=== PATIENT | male | born 1970 | race Caucasian/White ===

== ENCOUNTER 2021-09-06 00:02 | Observation (INO) | payer OTHER, SELFPAY ==
[2021-09-06 00:36] LABS: #Basophils 0.1 10x3/uL (0.0-0.2); #Eosinphils 0.5 10x3/uL (0.0-0.5); #Monocytes 0.8 10x3/uL (0.0-1.1); #Neutrophils 8.7 10x3/uL (1.5-8.4); %Basophils 0.7 % (0.0-2.0); %Eosinophils 3.8 % (0.0-6.0); %Lymphocytes 19.1 % (18.0-47.0); %Monocytes 6.1 % (0.0-10.0); %Neutrophils 69.9 % (40.0-75.0); Mean Corpuscular HGB CONC 35.8 g/dL (32.0-36.0); Mean Corpuscular Hemoglobin 30.9 pg (27.0-33.0); Mean Corpuscular Volume 86.3 fl (81.2-95.1); Platelet Count 310 10x3/uL (150-450); RBC Distribution Width 11.9 % (11.5-14.5); Red Blood Cell (RBC) Count 5.18 10x6/uL (4.32-5.72); White Blood Cell (WBC) Count 12.4 10x3/uL (3.5-10.5)
[2021-09-06 00:52] LABS: ALT (SGPT) 15 U/L (8-55); AST (SGOT) 12 U/L (5-34); Alkaline Phosphatase 70 U/L (40-110); Anion Gap 24 mmol/L (10-20); BUN (Urea Nitrogen) 22 mg/dL (8.4-25.7); Bilirubin, Total 1.2 mg/dL (0.2-1.2); Calc. Creatinine Clearance 0 mL/min (70-130); Carbon Dioxide 21 mmol/L (22-29); Chloride 99 mmol/L (98-107); Estimated GFR 79; Globulin 3.4 g/dL (2.4-3.5); Glucose 198 mg/dL (70-105); Magnesium 1.7 mg/dL (1.6-2.6); Potassium 4.2 mmol/L (3.5-5.1); Protein, Total 7.4 g/dL (6.0-8.3); Sodium 140 mmol/L (136-145)
[2021-09-06] MEDS ORDERED: Calcium Carbonate 500 MG ChewTAB PO PRN (01:35)
[2021-09-06] MEDS ORDERED: Acetaminophen 325 MG TAB PO PRN (01:35)
[2021-09-06] MEDS ORDERED: Dextrose 5% in Water 1,000 ML IV PRN (01:35)
[2021-09-06] MEDS ORDERED: Guaifenesin DM 100-10/5 ML UDCUP PO PRN (01:35)
[2021-09-06] MEDS ORDERED: Ondansetron PF 4 MG/2 ML Vial IVP PRN (01:35)
[2021-09-06] MEDS ORDERED: Senokot S 8.6-50 MG TAB PO PRN (01:35)
[2021-09-06] MEDS ORDERED: Dextrose 50% Abboject 50 ML SYRINGE SLOW IVP PRN (01:35)
[2021-09-06] MEDS ORDERED: Lactated Ringer's 1,000 ML IV SCH ×2 (01:45)
[2021-09-06 02:30] VITALS: BMI 25.6
[2021-09-06] MEDS ORDERED: Magnesium 2 GM/50 ML(in water) 2 GM in Premix Bag 1 BAG IVPB SCH (02:45)
[2021-09-06 04:31] LABS: Bilirubin Neg (Negative); Blood, Urine Negative (Negative); Clarity Clear (Clear); Glucose, Urine (Dipstick) >=1000 mg/dL (Negative); Ketone, Urine Negative (Negative); Leukocyte Negative (Negative); Nitrite Negative (Negative); Protein, Urine (Dipstick) Negative (Neg-Trace); Urobilinogen Normal mg/dL (Less than 2)
[2021-09-06 04:37] LABS: Bacteria/HPF None Seen HPF (None Seen); RBC/HPF None Seen HPF (0-3); Squamous Epithelial None Seen HPF (0-3); WBC/HPF None Seen HPF (0-3)
[2021-09-06 05:17] LABS: SARS-CoV-2 NAA Rapid Test Not Detected (NotDetected)
[2021-09-06 05:20] LABS: Anion Gap 17 mmol/L (10-20); BUN (Urea Nitrogen) 19 mg/dL (8.4-25.7); CK (CPK) 36 U/L (30-200); Calc. Creatinine Clearance 144 mL/min (70-130); Calcium 9.3 mg/dL (7.8-10.44); Carbon Dioxide 24 mmol/L (22-29); Chloride 104 mmol/L (98-107); Estimated GFR 107; Glucose 102 mg/dL (70-105); Magnesium 2.1 mg/dL (1.6-2.6); Phosphorus 3.7 mg/dL (2.3-4.7); Potassium 3.7 mmol/L (3.5-5.1); Sodium 141 mmol/L (136-145)
[2021-09-06 05:20] LABS: #Basophils 0.1 10x3/uL (0.0-0.2); #Eosinphils 0.4 10x3/uL (0.0-0.5); #Monocytes 0.7 10x3/uL (0.0-1.1); #Neutrophils 5.2 10x3/uL (1.5-8.4); %Basophils 0.5 % (0.0-2.0); %Eosinophils 4.2 % (0.0-6.0); %Lymphocytes 32.9 % (18.0-47.0); %Monocytes 7.1 % (0.0-10.0); Hemoglobin 14.3 g/dL (13.5-17.5); Mean Corpuscular HGB CONC 36.8 g/dL (32.0-36.0); Mean Corpuscular Volume 84.2 fl (81.2-95.1); Mean Platelet Volume 9.8 fl (7.4-10.4); Platelet Count 283 10x3/uL (150-450); Red Blood Cell (RBC) Count 4.62 10x6/uL (4.32-5.72); White Blood Cell (WBC) Count 9.5 10x3/uL (3.5-10.5)
[2021-09-06 05:22] LABS: Free T4 (Free Thyroxine) 0.97 ng/dL (0.70-1.48); Thyroid Stimulating Hormone 1.473 uIU/mL (0.35-4.94)
[2021-09-06] MEDS ORDERED: Hydrocortisone Sod Succ/PF 100 mg/2 ml Vial IVP SCH (06:00)
[2021-09-06] MEDS ORDERED: Sodium Chloride 0.9% 1,000 ML IV SCH (06:00)
[2021-09-06] MEDS ORDERED: Potassium Chloride 20 MEQ TAB PO SCH (06:30)
[2021-09-06 08:01] LABS: Troponin I Less than 0.010 ng/mL (< 0.028)
[2021-09-06] MEDS: Enoxaparin Sodium 40 MG/0.4 ML SYRINGE SC SCH (08:41)
[2021-09-06] MEDS ORDERED: Gabapentin 100 MG CAP PO SCH (09:00)
[2021-09-06] MEDS: HumaLOG 300 UNITS/3 ML VIAL SC PRN ×2 (11:57→16:22)
[2021-09-06] MEDS: Hydrocortisone Sod Succ/PF 100 mg/2 ml Vial IVP SCH ×2 (11:57→16:22)
[2021-09-06 12:42] LABS: Hemoglobin A1c 11.9 % (4.0-6.0)
[2021-09-06] MEDS ORDERED: [UNRECOGNIZED DRUG - OTHER] SC SCH (18:37)
[2021-09-06] MEDS ORDERED: INSULIN ASPART PROT SC SCH (18:37)
[2021-09-06] MEDS ORDERED: INSULN ASP SC SCH (18:37)
[2021-09-06] MEDS ORDERED: HumaLOG 300 UNITS/3 ML VIAL SC PRN (18:45)
[2021-09-06] MEDS ORDERED: Lantus 1000 UNITS/10 ML VIAL SC SCH (20:00)
[2021-09-06] MEDS: Gabapentin 300 MG CAP PO SCH (20:24)
[2021-09-06] MEDS: HumuLIN 70/30 (300 UNITS/3 ML VIAL) SC SCH (20:24)
[2021-09-06] MEDS ORDERED: Atorvastatin Calcium 20 MG TAB PO SCH (21:00)
[2021-09-06] MEDS ORDERED: [UNRECOGNIZED DRUG - OTHER] PO SCH (21:00)
[2021-09-06] MEDS ORDERED: EMPAGLIFLOZIN PO SCH (21:00)
[2021-09-06] MEDS ORDERED: METFORMIN HCL PO SCH (21:00)
[2021-09-07] MEDS: Hydrocortisone Sod Succ/PF 100 mg/2 ml Vial IVP SCH ×2 (00:47→06:13)
[2021-09-07 05:45] LABS: Anion Gap 14 mmol/L (10-20); BUN (Urea Nitrogen) 17 mg/dL (8.4-25.7); Calc. Creatinine Clearance 158 mL/min (70-130); Calcium 9.2 mg/dL (7.8-10.44); Carbon Dioxide 25 mmol/L (22-29); Chloride 105 mmol/L (98-107); Estimated GFR 110; Glucose 110 mg/dL (70-105); Potassium 3.3 mmol/L (3.5-5.1); Sodium 141 mmol/L (136-145)
[2021-09-07] MEDS: Enoxaparin Sodium 40 MG/0.4 ML SYRINGE SC SCH (08:21)
[2021-09-07] MEDS: Atorvastatin Calcium 40 MG TAB PO SCH (08:22)
[2021-09-07] MEDS: Gabapentin 300 MG CAP PO SCH ×3 (08:22→21:55)
[2021-09-07] MEDS: HumuLIN 70/30 (300 UNITS/3 ML VIAL) SC SCH ×2 (08:22→21:55)
[2021-09-07] MEDS: glipiZIDE 10 MG TAB PO SCH (08:22)
[2021-09-07] MEDS ORDERED: Iopamidol 370 76% 100 ML VIAL ONE (15:03)
[2021-09-08 04:49] LABS: Anion Gap 14 mmol/L (10-20); BUN (Urea Nitrogen) 17 mg/dL (8.4-25.7); Calc. Creatinine Clearance 156 mL/min (70-130); Carbon Dioxide 26 mmol/L (22-29); Chloride 105 mmol/L (98-107); Estimated GFR 109; Glucose 115 mg/dL (70-105); Potassium 3.2 mmol/L (3.5-5.1); Sodium 142 mmol/L (136-145)
[2021-09-08 07:07] VITALS: BP 115/70; TEMP 97.8
[2021-09-08] MEDS: Gabapentin 300 MG CAP PO SCH (08:10)
[2021-09-08] MEDS: HumuLIN 70/30 (300 UNITS/3 ML VIAL) SC SCH (08:10)
[2021-09-08] MEDS: Atorvastatin Calcium 40 MG TAB PO SCH (08:10)
[2021-09-08] MEDS: glipiZIDE 10 MG TAB PO SCH (08:10)
[2021-09-08] MEDS: Enoxaparin Sodium 40 MG/0.4 ML SYRINGE SC SCH (08:10)
[2021-09-08] MEDS ORDERED: Fludrocortisone Acetate 0.1 MG TAB PO SCH (09:00)
[2021-09-08] MEDS ORDERED: Polyethylene Glycol 3350 17 GM Packet PO SCH (10:30)
[2021-09-08] MEDS ORDERED: predniSONE 20 MG TAB PO SCH (10:30)
== END 2021-09-08 13:11 | disposition home or self-care (01) ==
LOC: CSHERS 00:02 → CSHTELE 02:16
PROVIDERS: ADMIT Internal Medicine; ATTEND Internal Medicine
DX: E27.40 Unspecified adrenocortical insufficiency (principal); I95.1 Orthostatic hypotension; E11.42 Type 2 diabetes mellitus with diabetic polyneuropathy; E11.621 Type 2 diabetes mellitus with foot ulcer; L97.519 Non-pressure chronic ulcer of other part of right foot with unspecified severity; E78.5 Hyperlipidemia, unspecified; F17.220 Nicotine dependence, chewing tobacco, uncomplicated; I95.0 Idiopathic hypotension; I45.10 Unspecified right bundle-branch block; R39.2 Extrarenal uremia; K59.00 Constipation, unspecified; R63.4 Abnormal weight loss; Z68.25 Body mass index [BMI] 25.0-25.9, adult; Z79.84 Long term (current) use of oral hypoglycemic drugs; Z79.899 Other long term (current) drug therapy; Z88.0 Allergy status to penicillin; Z20.822 Contact with and (suspected) exposure to COVID-19
CPT/HCPCS: 36415; 36416; 70450; 71045; 74177; 80048; 80053; 81001; 82024; 82533; 82550; 83036; 83735; 84100; 84439; 84443; 84484; 85025; 85379; 93005; 96372; 96374; 96375; 96376; 97139; G0378; J1650; J1720; J1815; J3475; J7050; J7120; J7512; Q9967; U0002